=== PATIENT | female | born 1985 | race Caucasian/White ===

== ENCOUNTER → 2016-09-19 | Outpatient (CLI) | payer OTHER ==
[~2016-09-19] MED LIST: B-121000 MCG PO; ELAVIL 25 MG TA25 MG PO; ENDOCET 5-3251 EACH PO; FENOFIBRATE145 MG PO; FIORICET TAB1 EA PO; FOLIC ACID1 MG PO; HYDROXYZINE HCL10 MG PO; IBUPROFEN800 MG PO; KEFLEX500 MG PO; LEVOTHYROXINE50 MCG PO; MELOXICAM15 MG PO; NORCO 7.5-3251 EACH PO; OMEPRAZOLE40 MG PO; OXTELLAR XR600 MG PO; PRAVACHOL40 MG PO; PROAIR HFA8.5 GM INH; VIT C PO; VIT D PO; VITAMIN C 500500 MG PO
== END ==
LOC: KOH-I 08:00
DX: M66.371 Spontaneous rupture of flexor tendons, right ankle and foot (principal); Z98.890 Other specified postprocedural states
CPT/HCPCS: 73721

== ENCOUNTER 2016-10-01 19:32 | Emergency (ER) | payer OTHER ==
[2016-10-01 20:55] LABS: HEMOGLOBIN 11.4 gm/dl (12.3-15.3); RED BLOOD COUNT 3.86 M/UL (4.00-5.10); WHITE BLOOD COUNT 6.2 K/UL (4.5-11.0)
[2016-10-01 21:13] LABS: BUN/CREATININE RATIO 14 (0-10)
[2017-01-18] MEDS ORDERED: LEVOTHYROXINE50 MCG PO (07:23)
[2017-01-18] MEDS ORDERED: FOLIC ACID1 MG PO (07:24)
[2017-01-18] MEDS ORDERED: B-121000 MCG PO (07:24)
[2017-01-18] MEDS ORDERED: HYDROXYZINE HCL10 MG PO (07:25)
[2017-01-18] MEDS ORDERED: PRAVACHOL40 MG PO (07:26)
[2017-01-18] MEDS ORDERED: ELAVIL 25 MG TA25 MG PO (07:26)
[2017-01-18] MEDS ORDERED: FENOFIBRATE145 MG PO (07:27)
[2017-01-18] MEDS ORDERED: PROAIR HFA8.5 GM INH (07:27)
[2017-01-18] MEDS ORDERED: FIORICET TAB1 EA PO (07:28)
[2017-01-18] MEDS ORDERED: VIT D PO (07:29)
[2017-01-18] MEDS ORDERED: ENDOCET 5-3251 EACH PO (07:30)
[2017-01-18] MEDS ORDERED: OMEPRAZOLE40 MG PO (07:31)
[2017-01-18] MEDS ORDERED: MELOXICAM15 MG PO (07:31)
[2017-01-18] MEDS ORDERED: VIT C PO (07:31)
[2017-01-18] MEDS ORDERED: OXTELLAR XR600 MG PO (07:36)
[2017-01-18] MEDS ORDERED: IBUPROFEN800 MG PO (10:07)
[2017-01-18] MEDS ORDERED: NORCO 7.5-3251 EACH PO (10:07)
[2017-01-18] MEDS ORDERED: VITAMIN C 500500 MG PO (10:07)
[2017-01-18] MEDS ORDERED: KEFLEX500 MG PO (10:08)
== END 2016-10-02 01:30 | disposition home or self-care (01) ==
LOC: ER1 19:32
PROVIDERS: Student in an Organized Health Care Education/Training Program
DX: R07.89 Other chest pain (principal); Z79.899 Other long term (current) drug therapy
CPT/HCPCS: 36415; 71010; 80053; 81001; 82550; 82553; 83690; 83874; 84484; 84703; 85025; 85379; 85610; 85730; 93005; 96374; 99285; J1885

== ENCOUNTER → 2020-10-21 | Outpatient (CLI) | payer OTHER ==
[~2020-10-21] MED LIST changes: +ANTIVERT 25MG T25 MG PO; +CYCLOBENZAPRINE5 MG PO; +ECOTRIN81 MG PO; +ELAVIL 50 MG TA50 MG PO; +FEOSOL325 MG PO; +FISH OIL 1,0001 EACH PO; +GABAPENTIN400 MG PO; +KEFLEX CAP 500500 MG PO; +LEVOTHYROXINE25 MCG PO; -LEVOTHYROXINE50 MCG PO; +METOPROLOL SUCC25 MG PO; +MOBIC15 MG PO; +NORCO 10-325 T1 EACH PO; +OXTELLAR XR300 MG PO; +PHENERGAN 12.12.5 M1 PO; +TORADOL 10 MG T10 MG PO; +ZOFRAN4 MG PO; +ZOLOFT25 MG PO
[2020-10-21 09:20] LABS: HEMOGLOBIN 13.2 gm/dl (12.3-15.3); RED BLOOD COUNT 4.5 M/UL (4.00-5.10); WHITE BLOOD COUNT 5.7 K/UL (4.5-11.0)
== END ==
LOC: OPSV2 08:00
PROVIDERS: Podiatrist Foot & Ankle Surgery
DX: Z01.812 Encounter for preprocedural laboratory examination (principal); M25.373 Other instability, unspecified ankle; S86.39 Other injury of muscle(s) and tendon(s) of peroneal muscle group at lower leg level
CPT/HCPCS: 36415; 85027

== ENCOUNTER → 2020-11-18 | Day surgery (SDC) | payer OTHER | END | disposition home or self-care (01) | LOC: OR 10-23 07:45 | PROVIDERS: Podiatrist Foot & Ankle Surgery | PROC: 0SBG4ZZ Excision of Left Ankle Joint, Percutaneous Endoscopic Approach (ICD-10-PCS; principal; 2020-11-18 07:45) | PROC: 0LQW0ZZ Repair Left Foot Tendon, Open Approach (ICD-10-PCS; principal; 2020-11-18 07:45) | PROC: 0MQR0ZZ Repair Left Ankle Bursa and Ligament, Open Approach (ICD-10-PCS; principal; 2020-11-18 07:45) | DX: S86.312A Strain of muscle(s) and tendon(s) of peroneal muscle group at lower leg level, left leg, initial encounter (principal); M25.372 Other instability, left ankle; K21.9 Gastro-esophageal reflux disease without esophagitis; G43.909 Migraine, unspecified, not intractable, without status migrainosus; G40.909 Epilepsy, unspecified, not intractable, without status epilepticus; E78.5 Hyperlipidemia, unspecified; G89.29 Other chronic pain; I10 Essential (primary) hypertension; Z79.82 Long term (current) use of aspirin; Z79.1 Long term (current) use of non-steroidal anti-inflammatories (NSAID); Z79.899 Other long term (current) drug therapy; Z20.822 Contact with and (suspected) exposure to COVID-19; X58.XXXA Exposure to other specified factors, initial encounter | CPT/HCPCS: 84703; C1713; J0171; J0690; J1100; J1885; J2001; J2250; J2310; J2405; J2704; J2795; J3010; J3370; J7120; Q4133 ==